=== PATIENT | male | born 1990 | race American Indian/Alaskan Native ===

== ENCOUNTER 2019-02-27 17:46 | Emergency (ER) | payer MEDICAID ==
[~2019-02-27] VITALS: Ht 182.9 cm; Wt 108.2 kg
[~2019-02-27 17:46] MED LIST: IBUP-1986 PO; RANI-366 PO
--- NOTE | 2019-02-27 18:00 | NUR ---
SPOKE WITH DR ALSTON ABOUT POC FOR PT. ORDERED TO ORDER [facility] PROTOCOL FOR PT. PROTOCOL PLACED AND JENNIE LEVEL CHANGED.
[2019-02-27 18:24] LABS: BASOPHILS # (AUTO) 0.1 X10'3 (0-0.2); BASOPHILS % (AUTO) 0.9 % (0-1); EOSINOPHILS # (AUTO) 0.1 X10'3 (0-0.9); EOSINOPHILS % (AUTO) 1.2 % (0-6); HEMATOCRIT 44.9 % (42.0-52.0); HEMOGLOBIN 15.4 g/dl (14.0-17.9); LYMPHOCYTES # (AUTO) 3.3 X10'3 (1.1-4.8); LYMPHOCYTES % (AUTO) 32.7 % (21-51); MEAN CORPUSCULAR HEMOGLOBIN 30.2 PG (27.0-31.0); MEAN CORPUSCULAR HGB CONC 34.3 g/dL (33.0-36.5); MEAN CORPUSCULAR VOLUME 87.9 FL (78-98); MEAN PLATELET VOLUME 8.4 FL (7.4-10.4); MONOCYTES # (AUTO) 0.8 X10'3 (0-0.9); MONOCYTES % (AUTO) 7.5 % (2-12); NEUTROPHILS # (AUTO) 5.8 X10'3 (1.8-7.7); NEUTROPHILS % (AUTO) 57.7 % (42-75); PLATELET COUNT 354 X10'3 (140-440); RED CELL DISTRIBUTION WIDTH 13.5 % (11.5-14.5); WHITE BLOOD COUNT 10.1 X10'3 (4.5-11.0)
[2019-02-27 18:40] LABS: ALANINE AMINOTRANSFERASE 30 U/L (12-78); ALBUMIN 4.5 G/DL (3.4-5.0); ALBUMIN/GLOBULIN RATIO 1.2 (1.1-1.5); ALKALINE PHOSPHATASE 103 IU/L (46-116); ANION GAP 10 (8-16); ASPARTATE AMINO TRANSFERASE 21 U/L (10-37); BILIRUBIN,TOTAL 0.8 MG/DL (0.1-1.0); BLOOD UREA NITROGEN 13 MG/DL (7-18); BUN/CREATININE RATIO 10.7 (5.4-32.0); CHLORIDE 107 MMOL/L (99-107); CREATININE 1.22 MG/DL (0.60-1.10); GLUCOSE 83 MG/DL (70-104); SODIUM 144 MMOL/L (135-145); TOTAL CARBON DIOXIDE 26.8 MMOL/L (24-32); TOTAL PROTEIN 8.2 G/DL (6.4-8.2); eGFR 70 ML/MIN
[2019-02-27 18:43] LABS: PARTIAL THROMBOPLASTIN TIME 29 SECONDS (22-32)
[2019-02-27] MEDS ORDERED: IBUP-1986 PO (20:52)
[2019-02-27 20:57] VITALS: BP 148/104
== END 2019-02-27 21:01 | disposition home or self-care (01) ==
LOC: ER 17:47
DX: R07.89 Other chest pain (principal); G89.29 Other chronic pain; F12.90 Cannabis use, unspecified, uncomplicated; Z79.899 Other long term (current) drug therapy
CPT/HCPCS: 36415; 71045; 80053; 84484; 85025; 85610; 85730; 93005; 99284

== ENCOUNTER 2022-01-14 11:24 | Emergency (ER) | payer MEDICAID ==
[~2022-01-14] VITALS: Ht 180.3 cm; Wt 111.4 kg
[2022-01-14 14:43] VITALS: BP 125/67
== END 2022-01-14 14:44 | disposition home or self-care (01) ==
LOC: ER 11:25
DX: S09.90XA Unspecified injury of head, initial encounter (principal); G89.29 Other chronic pain; M54.50 Low back pain, unspecified; F12.90 Cannabis use, unspecified, uncomplicated; W22.01XA Walked into wall, initial encounter; Y93.89 Activity, other specified; Y92.89 Other specified places as the place of occurrence of the external cause; Y99.8 Other external cause status
CPT/HCPCS: 70450; 93005; 99284

== ENCOUNTER 2022-08-20 12:12 | Emergency (ER) | payer MEDICAID ==
[~2022-08-20] VITALS: Ht 185.4 cm; Wt 122.7 kg
[2022-08-20 12:16] VITALS: BP 139/103
[2022-08-20] MEDS ORDERED: LIDOcaine Viscous 15ml cup MM ONE (17:10)
== END 2022-08-20 18:18 | disposition home or self-care (01) ==
LOC: ER 12:12
DX: J02.9 Acute pharyngitis, unspecified (principal); G89.29 Other chronic pain; M54.9 Dorsalgia, unspecified; F12.10 Cannabis abuse, uncomplicated; Z79.899 Other long term (current) drug therapy; Z79.1 Long term (current) use of non-steroidal anti-inflammatories (NSAID)
CPT/HCPCS: 87081; 87880; 99283

== ENCOUNTER 2022-08-28 13:53 | Emergency (ER) | payer MEDICAID ==
[~2022-08-28] VITALS: Ht 185.4 cm; Wt 122.7 kg
[2022-08-28 14:17] LABS: BASOPHILS # (AUTO) 0.1 X10'3 (0-0.2); BASOPHILS % (AUTO) 0.7 % (0-1); EOSINOPHILS # (AUTO) 0.2 X10'3 (0-0.9); EOSINOPHILS % (AUTO) 1.3 % (0-6); HEMATOCRIT 48.6 % (42.0-52.0); HEMOGLOBIN 16.5 g/dl (14.0-17.9); LYMPHOCYTES # (AUTO) 3.2 X10'3 (1.1-4.8); LYMPHOCYTES % (AUTO) 22.6 % (21-51); MEAN CORPUSCULAR HEMOGLOBIN 30.3 PG (27.0-31.0); MEAN CORPUSCULAR VOLUME 89.1 FL (78-98); MEAN PLATELET VOLUME 8.3 FL (7.4-10.4); MONOCYTES # (AUTO) 1.4 X10'3 (0-0.9); MONOCYTES % (AUTO) 10.1 % (2-12); NEUTROPHILS # (AUTO) 9.2 X10'3 (1.8-7.7); NEUTROPHILS % (AUTO) 65.3 % (42-75); PLATELET COUNT 422 X10'3 (140-440); RED BLOOD COUNT 5.45 X10'6 (4.70-6.10); RED CELL DISTRIBUTION WIDTH 13.2 % (11.5-14.5); WHITE BLOOD COUNT 14.1 X10'3 (4.5-11.0)
[2022-08-28 14:26] LABS: APTT 30 SECONDS (22-32)
[2022-08-28 14:36] LABS: ALANINE AMINOTRANSFERASE 38 U/L (12-78); ALBUMIN 4.1 G/DL (3.4-5.0); ALBUMIN/GLOBULIN RATIO 0.9 (1.1-1.5); ALKALINE PHOSPHATASE 124 IU/L (46-116); ANION GAP 4 (8-16); ASPARTATE AMINO TRANSFERASE 24 U/L (10-37); BILIRUBIN,TOTAL 0.5 MG/DL (0.1-1.0); BLOOD UREA NITROGEN 15 MG/DL (7-18); BUN/CREATININE RATIO 13.2 (5.4-32.0); CALCIUM 9.6 MG/DL (8.5-10.1); CHLORIDE 102 MMOL/L (99-107); CREATININE 1.14 MG/DL (0.60-1.10); GLUCOSE 92 MG/DL (70-104); MAGNESIUM 2.4 MG/DL (1.5-2.4); POTASSIUM 3.8 MMOL/L (3.5-5.1); SODIUM 137 MMOL/L (135-145); TOTAL CARBON DIOXIDE 30.6 MMOL/L (24-32); TOTAL PROTEIN 8.9 G/DL (6.4-8.2); eGFR 74 ML/MIN
[2022-08-28 18:24] VITALS: BP 136/91
--- NOTE | 2022-08-28 19:30 | NUR ---
general assessment reviewed, diandra thayer
[2022-08-28] MEDS ORDERED: PANT-47 PO (19:38)
== END 2022-08-28 19:53 | disposition home or self-care (01) ==
LOC: ER 13:53
DX: R10.13 Epigastric pain (principal); K21.9 Gastro-esophageal reflux disease without esophagitis; G89.29 Other chronic pain; M54.50 Low back pain, unspecified; F12.90 Cannabis use, unspecified, uncomplicated
CPT/HCPCS: 36415; 80053; 83735; 83880; 84484; 85025; 85379; 85610; 85730; 93005; 99284

== ENCOUNTER 2022-10-09 04:39 | Emergency (ER) | payer MEDICAID ==
[~2022-10-09] VITALS: Ht 180.3 cm; Wt 120.5 kg
[~2022-10-09 04:39] MED LIST changes: +PANT-47 PO
[2022-10-09 04:47] VITALS: BP 130/94
[2022-10-09] MEDS ORDERED: ibuprofen tablet 400 MG TABLET PO ONE (05:00)
[2022-10-17] MEDS ORDERED: ONDA4TAB12 PO (12:23)
== END 2022-10-09 07:49 | disposition home or self-care (01) ==
LOC: ER 04:40
DX: M25.571 Pain in right ankle and joints of right foot (principal); M79.671 Pain in right foot; R22.41 Localized swelling, mass and lump, right lower limb; G89.29 Other chronic pain; F12.90 Cannabis use, unspecified, uncomplicated; Z79.899 Other long term (current) drug therapy; Y93.67 Activity, basketball; Y92.89 Other specified places as the place of occurrence of the external cause; Y99.8 Other external cause status
CPT/HCPCS: 29515; 73610; 73630; 99284

== ENCOUNTER 2022-10-13 11:18 | Emergency (ER) | payer MEDICAID ==
[~2022-10-13] VITALS: Ht 180.3 cm; Wt 120.0 kg
[2022-10-13 11:20] VITALS: BP 163/92
[2022-10-13] MEDS ORDERED: ibuprofen tablet 400 MG TABLET PO ONE (12:30)
[2022-10-13] MEDS ORDERED: TETanus/Pertussis (Acell)/Diphther VAC/PF (Tdap-Adult) 0.5ml syringe IMVAC ONE (12:50)
== END 2022-10-13 13:15 | disposition home or self-care (01) ==
LOC: ER 11:18
DX: S90.412A Abrasion, left great toe, initial encounter (principal); X58.XXXA Exposure to other specified factors, initial encounter; Y93.89 Activity, other specified; Y92.89 Other specified places as the place of occurrence of the external cause; Y99.8 Other external cause status
CPT/HCPCS: 73660; 90471; 90715; 99284